=== PATIENT | male | born 1945 | race Caucasian/White ===

== ENCOUNTER 2022-06-28 05:27 | Day surgery (SDC) | payer BC, MEDICARE ==
[2022-06-28] MEDS ORDERED: fentaNYL 100 MCG/2 ML SDV IV ONE (05:28)
[2022-06-28] MEDS ORDERED: Midazolam 1 MG/ML 2 ML SDV IV ONE (05:28)
[2022-06-28] MEDS: Dextrose 5%-0.45% NaCl 1,000 ML IV SCH (05:50)
[2022-06-28] MEDS ORDERED: Midazolam 1 MG/ML 2 ML SDV ONE (05:53)
[2022-06-28] MEDS ORDERED: fentaNYL 100 MCG/2 ML SDV ONE (05:54)
[2022-06-28] MEDS: fentaNYL 100 MCG/2 ML SDV IVPUSH ONE (06:30)
[2022-06-28] MEDS: fentaNYL 100 MCG/2 ML SDV IV ONE ×2 (06:31→06:42)
[2022-06-28] MEDS: Midazolam 1 MG/ML 2 ML SDV IV ONE ×6 (06:32→06:40)
== END 2022-06-28 08:25 | disposition home or self-care (01) ==
LOC: DL.ENDO 05:27
PROVIDERS: ATTEND Internal Medicine Gastroenterology
DX: K62.5 Hemorrhage of anus and rectum (principal); K64.8 Other hemorrhoids; K64.4 Residual hemorrhoidal skin tags; K57.30 Diverticulosis of large intestine without perforation or abscess without bleeding; I10 Essential (primary) hypertension; R73.9 Hyperglycemia, unspecified; E78.00 Pure hypercholesterolemia, unspecified; M19.90 Unspecified osteoarthritis, unspecified site; Z90.49 Acquired absence of other specified parts of digestive tract
CPT/HCPCS: J2250; J3010; J7042